=== PATIENT | male | born 1965 | race African-American/Black ===

== ENCOUNTER 2020-04-30 23:39 | Emergency (ER) | payer BC, OTHER ==
[~2020-04-30] VITALS: Ht 188 cm; Wt 109.0 kg
[2020-05-01 00:45] VITALS: BP 145/80
[2020-05-01] MEDS ORDERED: KETOROLAC 60MG/2ML VIAL IM ONE (00:45)
[2020-05-01] MEDS ORDERED: HYDROCODONE/ACETAMINOPHEN 5/325MG TABLET PO ONE (00:45)
== END 2020-05-01 04:10 | disposition home or self-care (01) ==
LOC: ER 23:39
DX: S49.82XA Other specified injuries of left shoulder and upper arm, initial encounter (principal); R07.81 Pleurodynia; R03.0 Elevated blood-pressure reading, without diagnosis of hypertension; E11.9 Type 2 diabetes mellitus without complications; V49.49XA Driver injured in collision with other motor vehicles in traffic accident, initial encounter; Y93.89 Activity, other specified; Y92.488 Other paved roadways as the place of occurrence of the external cause
CPT/HCPCS: 71101; 73030; 93005; 99284; J1885

== ENCOUNTER 2024-10-30 17:03 | Emergency (ER) | payer OTHER, MEDICAID ==
[~2024-10-30] VITALS: Ht 190.5 cm; Wt 125.0 kg
[2024-10-30 17:05] VITALS: O2SAT 99
[2024-10-30 17:56] VITALS: TEMP 36.9
[2024-10-30 18:51] LABS: BASOPHILS % 0.6 % (0.0-2.0); EOSINOPHILS % 7.4 % (0.0-5.0); HEMATOCRIT. 39.4 % (42.0-52.0); HEMOGLOBIN. 12.6 g/dL (14.0-18.0); LYMPHOCYTES % 27.5 % (20.0-50.0); MEAN CORPUSCULAR HEMOGLOBIN 29.2 pg (28.0-32.0); MEAN CORPUSCULAR HGB CONC 31.9 g/dL (31.0-37.0); MEAN CORPUSCULAR VOLUME 91.4 fL (80.0-94.0); MEAN PLATELET VOLUME 7.5 fl (7.4-10.4); MONOCYTES % 10.9 % (2.0-8.0); NEUTROPHILS % 53.6 % (40.0-76.0); PLATELET 184 x1000/uL (130-400); RED BLOOD CELL COUNT 4.31 mill/uL (4.7-6.1); WHITE BLOOD COUNT 5.5 x1000/uL (4.5-11.0)
[2024-10-30 19:00] LABS: CHLORIDE 95 mEq/L (98-107); POTASSIUM 4.7 mEq/L (3.5-5.1); SODIUM 137 mEq/L (136-145)
[2024-10-30 19:01] LABS: CALCIUM 8.4 mg/dL (8.7-10.4); CARBON DIOXIDE 32 mEq/L (21-32); PARTIAL THROMBOPLASTIN TIME 27.3 sec (23.4-31.0); PROTHROMBIN TIME 10.9 sec (9.6-11.0)
[2024-10-30 19:06] LABS: GLUCOSE 92 mg/dL (70-105); UREA NITROGEN BLOOD 36 mg/dL (9-23)
[2024-10-30 19:20] LABS: CREATININE 5.7 mg/dL (0.6-1.3); TROPONIN I HIGH SENSITIVITY 155 ng/L (3.0-53)
[2024-10-30 23:42] LABS: CLARITY URINE CLEAR (CLEAR); COLOR URINE YELLOW (YELLOW); GLUCOSE URINE NEGATIVE (NEGATIVE); KETONES URINE NEGATIVE (NEGATIVE); LEUKOCYTE ESTERASE URINE NEGATIVE (NEGATIVE); NITRITE URINE NEGATIVE (NEGATIVE); OCCULT BLOOD URINE NEGATIVE (NEGATIVE); PH URINE 8.5 (4.5-8.0); PROTEIN URINE 3+ (NEGATIVE); SPECIFIC GRAVITY URINE 1.007 (1.005-1.030); UROBILINOGEN URINE 0.2 E.U./dL (0.2-1.0)
[2024-10-30 23:50] VITALS: BP 141/96; PULSE 85; RESP 18; O2SAT 100
[2024-10-31 00:09] LABS: SQUAMOUS EPITHELIAL CELL URINE FEW /lpf (RARE/1+)
[2024-10-31 00:10] LABS: BACTERIA URINE NONE SEEN
== END 2024-10-30 23:59 ==
LOC: ER 17:03
DX: I13.2 Hypertensive heart and chronic kidney disease with heart failure and with stage 5 chronic kidney disease, or end stage renal disease (principal); I50.9 Heart failure, unspecified; N18.6 End stage renal disease; E11.22 Type 2 diabetes mellitus with diabetic chronic kidney disease; R41.82 Altered mental status, unspecified; Z99.2 Dependence on renal dialysis
CPT/HCPCS: 36415; 71045; 80048; 81003; 83880; 84484; 85025; 93005; 99285